=== PATIENT | female | born 1995 | race Caucasian/White ===

== ENCOUNTER 2025-02-12 12:45 | Emergency (ER) | payer OTHER, SELFPAY ==
--- NOTE | 2025-02-12 12:48 | ED_ITS ---
HPI - URI/Sore Throat General Chief Complaint: Upper Respiratory Infection Stated Complaint: COUGH/EARACHE Time Seen by Provider: 02/12/25 12:46 Source: patient Mode of arrival: ambulatory Limitations: no limitations History of Present Illness HPI Narrative: Nancy is a 29-year-old female patient presenting to the clinic today with complaints of cough and ear pain x1 day. She reports symptoms started yesterday have some ear drainage and pain when she is opening and closing her jaw and pain is radiating into her jaw. No fevers, chills, body aches. Does have a nonproductive cough and nasal drainage Related Data Home Medications ?Medication ?Instructions ?Recorded ?Confirmed ?Last Taken ?Type dextroamphetamine-amphetamine ER PO 02/12/25 Unknown History 10 mg 24hr capsule,extend release dulaglutide 0.75 mg/0.5 mL mg subcut 02/12/25 Unknown History subcutaneous pen injector (Trulicity) rivaroxaban 20 mg tablet (Xarelto) mg 02/12/25 Unknown History sertraline 100 mg tablet mg 02/12/25 Unknown History Allergies Allergy/AdvReac Type Severity Reaction Status Date / Time No Known Allergies Allergy Verified 02/12/25 12:59 Review of Systems Review of Systems: Pertinent positives per HPI. Patient denies any fever, chills, rash, headache, visual changes, dizziness, shortness of breath, chest pain, palpitations, nausea, vomiting, diarrhea, constipation, abdominal pain, or any urinary issues. PMFSH Comments At the time of my signature, I reviewed and agree with the nursing past medical, surgical, social, and family history. There is no relevant family history pertinent to the patient complaint. Exam Narrative: General: Well-developed, well nourished, in no apparent distress Head: Normocephalic, atraumatic Eyes: Pupils equally round and reactive to light bilaterally, EOM intact, sclera and conjunctive clear, no discharge, lids normal Ears: Left TMs intact and clear, right TM intact, bulging, red, left ear canal clear, no drainage, right ear canal swollen with yellow mucopurulent discharge, grossly hearing normal. Nose: Nares patent, clear nasal discharge, no inflammation, no sinus tenderness. Mouth: Oral pharynx without lesions or masses, good dentition, MMM. Postnasal drip Neck: Supple, trachea midline, no enlargement of anterior or posterior cervical nodes, no thyroid masses or goiter palpable. Cardio: Regular rate and rhythm, s1 and s2 normal, no murmur appreciated. Resp: Clear to auscultation bilaterally, no rhonchi, rales, wheezing or rubs Course Course Emergency Course: Portions of this record may have been created with voice recognition software. Level of Care: Express Care Visit Vital Signs Vital signs: Vital Signs Oxygen Delivery Room Air 02/12/25 12:51 Temperature 36.7 C 02/12/25 12:54 Pulse Rate 84 02/12/25 12:54 Respiratory Rate 16 02/12/25 12:54 Blood Pressure 127/81 02/12/25 12:54 Pulse Oximetry 97 02/12/25 12:54 Oxygen Delivery Room Air 02/12/25 12:54 Vital signs reviewed MDM - URI/Sore Throat MDM Narrative Medical decision making narrative: At the time of visit patient is resting comfortably on the exam table. Patient appears to be nontoxic. Plan: I suspect patient has right right otitis media/otitis externa the URI. Prescription for amoxicillin and ofloxacin was sent to the pharmacy. Supportive measures were discussed with the patient and they voiced understanding discharge instructions and agrees to treatment plan. Return precautions reviewed Differential Diagnosis Differential diagnosis: Likely upper respiratory infection, otitis media, sinusitis, viral infection, bronchitis, influenza, pharyngitis and other (COVID) Discharge Plan Discharge Clinical Impression: Acute right otitis media Otitis externa Qualifiers: Otitis externa type: diffuse Chronicity: acute Laterality: right Qualified Code(s): H60.311 - Diffuse otitis externa, right ear URI (upper respiratory infection) Qualifiers: URI type: unspecified viral URI Qualified Code(s): J06.9 - Acute upper respiratory infection, unspecified Patient Disposition: Home Condition: Stable Instructions: Antibiotic Form, Swimmer's Ear (ED), Ear Infection (ED), Cold Symptoms (ED) Additional Instructions: Take prescription medications only as prescribed-ofloxacin and amoxicillin Increase fluids and stay well hydrated Tylenol/motrin for pain/fever Flonase and OTC antihistamines as directed Vicks vapor rub to open sinuses Sinus rinses for congestion Cepacol spray, cough drops, throat lozenges, warm tea with honey/lemon, gargle salt water to soothe throat BRAT diet for diarrhea Clear liquids x 24 hours then advance as tolerated for nausea/vomiting Go to the ED if you develop a worsening in your condition- high fever not controlled by Tylenol or Motrin, dehydration, weakness, lethargy, shortness of breath, or chest pain. Follow up with your PCP in 3-5 days if symptoms persist. Patient Language: [place] Prescriptions: New amoxicillin 875 mg tablet 875 mg PO Q12H 7 Days Qty: 14 0RF ofloxacin 0.3 % drops 5 drp otic (ear) BID 7 Days Qty: 5 0RF No Action sertraline 100 mg tablet dextroamphetamine-amphetamine 10 mg capsule,extended release 24hr PO Xarelto 20 mg tablet Trulicity 0.75 mg/0.5 mL pen injector SUBCUT Follow-up/Referrals: Jeremy,Nila Perera MD [Primary Care Provider] - Stand Alone Forms: Work/School Release IP Time of Disposition: 13:03 Quality NIHSS Nursing Documentation ED NIHSS nursing documentation: reviewed/agree
[2025-02-12 12:54] VITALS: BP 127/81; PULSE 84; RESP 16; TEMP 36.7; O2SAT 97
== END 2025-02-12 13:05 | disposition home or self-care (01) ==
PROVIDERS: Emergency Provider Nurse Practitioner Family; PCP Internal Medicine
DX: H66.91 Otitis media, unspecified, right ear (principal); H60.311 Diffuse otitis externa, right ear; J06.9 Acute upper respiratory infection, unspecified
CPT/HCPCS: 99203; G0463